=== PATIENT | male | born 1960 | race Asian ===

== ENCOUNTER 2024-04-10 06:21 | Day surgery (SDC) | payer OTHER, SELFPAY | END 2024-04-10 11:20 | disposition home or self-care (01) | LOC: GI 06:21 | PROVIDERS: ATTENDING PHYSICIAN Internal Medicine | DX: Z12.11 Encounter for screening for malignant neoplasm of colon (principal); K63.5 Polyp of colon; K57.30 Diverticulosis of large intestine without perforation or abscess without bleeding; K64.9 Unspecified hemorrhoids; K29.80 Duodenitis without bleeding; K44.9 Diaphragmatic hernia without obstruction or gangrene; K26.9 Duodenal ulcer, unspecified as acute or chronic, without hemorrhage or perforation; K31.89 Other diseases of stomach and duodenum; R10.13 Epigastric pain; R14.0 Abdominal distension (gaseous); Z86.0101 Personal history of adenomatous and serrated colon polyps | CPT/HCPCS: 45385; 43239; 88305; 88342 ==